=== PATIENT | female | born 1995 | race Caucasian/White ===

== ENCOUNTER 2020-11-11 05:41 | Emergency (ER) | payer OTHER ==
[~2020-11-11] VITALS: Ht 160 cm; Wt 60.0 kg
[2020-11-11 07:38] LABS: BASO # 0.1 10^3/uL (0.0-0.2); BASO % 0.7 % (0.0-1.0); EOS # 0.3 10^3/uL (0.0-0.5); EOS % 4.7 % (0.0-3.0); HEMATOCRIT 39.1 % (36.0-47.0); HEMOGLOBIN 12.8 g/dl (12.0-15.5); LYMPH # 2.7 10^3/uL (1.5-5.0); LYMPH % 39.1 % (24.0-44.0); MEAN CORPUSCULAR HEMOGLOBIN 31.2 pg (27.0-33.0); MEAN CORPUSCULAR HGB CONC 32.7 g/dl (32.0-36.5); MEAN CORPUSCULAR VOLUME 95.4 fl (80.0-96.0); MONO # 0.5 10^3/uL (0.0-0.8); MONO % 7.7 % (2.0-8.0); NEUTROPHILS # 3.2 10^3/uL (1.5-8.5); NEUTROPHILS % 47.7 % (36.0-66.0); PLATELET COUNT, AUTOMATED 260 10^3/uL (150-450); WHITE BLOOD COUNT 6.8 10^3/uL (4.0-10.0)
[2020-11-11 09:02] VITALS: BP 112/62
== END 2020-11-11 09:03 | disposition home or self-care (01) ==
LOC: M ED 05:41
DX: N92.6 Irregular menstruation, unspecified (principal); Z97.5 Presence of (intrauterine) contraceptive device

== ENCOUNTER → 2021-01-12 | Outpatient (REF) | LOC: M EMP 13:09 | PROVIDERS: ATTEND Family Medicine | DX: Z11.52 Encounter for screening for COVID-19 (principal) ==

== ENCOUNTER 2021-11-27 10:12 | Emergency (ER) | payer OTHER ==
[~2021-11-27] VITALS: Ht 160 cm; Wt 73.2 kg
[~2021-11-27 10:12] MED LIST: ALBUTEROL 90 MCG/ACT 8GM HFA INHALER INH PRN; ALBUTEROL SULFATE 2.5 MG/0.5 ML INH NEB SOLN INH PRN; EPINEPHrine INJ 1 MG/ML 1ML AMP IM PRN; diphenhydrAMINE 50MG/ML VIAL (J1200) IV PRN; methylPREDNISolone 125MG 2ML VIAL IV PRN
[2021-11-27] MEDS ORDERED: PRENMIS3 PO (10:24)
[2021-11-27 14:50] VITALS: O2SAT 97
[2021-11-27] MEDS ORDERED: BEBTELOVIMAB 175MG 2ML VIAL (EUA) IV ONE (17:00)
[2021-11-27] MEDS ORDERED: NS 1,000 ML IV SCH (17:00)
[2021-11-27 17:15] VITALS: BP 118/65
== END 2021-11-27 19:09 | disposition home or self-care (01) ==
LOC: M ED 10:12
DX: U07.1 COVID-19 (principal); Z3A.31 31 weeks gestation of pregnancy

== ENCOUNTER 2022-01-27 05:27 | Inpatient (IN) | payer OTHER ==
[2022-01-27] VITALS (9 sets, daily range): BP systolic 103–121; BP diastolic 56–77
[~2022-01-27] VITALS: Ht 160 cm; Wt 76.1 kg
[~2022-01-27 05:27] MED LIST changes: -ALBUTEROL 90 MCG/ACT 8GM HFA INHALER INH PRN; -ALBUTEROL SULFATE 2.5 MG/0.5 ML INH NEB SOLN INH PRN; -EPINEPHrine INJ 1 MG/ML 1ML AMP IM PRN; +PRENMIS3 PO; -diphenhydrAMINE 50MG/ML VIAL (J1200) IV PRN; -methylPREDNISolone 125MG 2ML VIAL IV PRN
[2022-01-27] MEDS ORDERED: LR 1,000 ML IV ONE (06:00)
[2022-01-27] MEDS ORDERED: BICITRA 30ML SOLN UDC PO ONE (06:15)
[2022-01-27] MEDS ORDERED: ceFAZolin SOD 2 GM in IV 1 EA IV ONE (06:15)
[2022-01-27 06:42] LABS: HEMATOCRIT 39.2 % (36.0-47.0); HEMOGLOBIN 12.9 g/dl (12.0-15.5); MEAN CORPUSCULAR HEMOGLOBIN 31.6 pg (27.0-33.0); MEAN CORPUSCULAR HGB CONC 32.9 g/dl (32.0-36.5); MEAN CORPUSCULAR VOLUME 96.1 fl (80.0-96.0); PLATELET COUNT, AUTOMATED 205 10^3/uL (150-450); RED BLOOD COUNT 4.08 10^6/uL (4.00-5.40); WHITE BLOOD COUNT 9.3 10^3/uL (4.0-10.0)
[2022-01-27] MEDS ORDERED: OXYTOCIN 30 UNITS IN 0.9% NaCl 500ML IV BAG (J2590) As Ordered ONE ×2 (07:20→09:08)
[2022-01-27] MEDS ORDERED: ePHEDrine SULFATE 25 MG/5 ML(5MG/ML) SYRINGE As Ordered ONE (07:20)
[2022-01-27] MEDS ORDERED: MORPHINE PRES-FREE INJ 10 MG/10 ML VIAL As Ordered ONE (07:21)
[2022-01-27] MEDS ORDERED: PHENYLephrine 500MCG 5ML (100MCG/ML) SYRINGE As Ordered ONE (07:21)
[2022-01-27] MEDS ORDERED: MOM 30ML SUSPENSION UDC PO PRN (07:50)
[2022-01-27] MEDS ORDERED: oxyCODONE 5MG TAB PO PRN ×3 (07:50→09:40)
[2022-01-27] MEDS ORDERED: SIMETHICONE 80MG CHEW TAB PO PRN (07:50)
[2022-01-27] MEDS ORDERED: ONDANSETRON 4MG 2ML VIAL IV PRN ×2 (07:50→09:40)
[2022-01-27] MEDS ORDERED: ACETAMINOPHEN 500 MG TAB PO PRN (07:50)
[2022-01-27] MEDS ORDERED: RHOGAM 300 MCG (1500 IU) INJ (J2790) IM SCH (07:50)
[2022-01-27] MEDS ORDERED: KETOROLAC 60MG 2ML VIAL As Ordered ONE (08:01)
[2022-01-27] MEDS ORDERED: ONDANSETRON 4MG 2ML VIAL As Ordered ONE (08:01)
[2022-01-27] MEDS: DOCUSATE SODIUM 100MG CAPSULE PO SCH ×2 (09:00→21:01)
[2022-01-27] MEDS: PRENATAL VITAMINS CHEWABLE TABLET PO SCH (09:00)
[2022-01-27] MEDS ORDERED: PRENATAL VITAMINS CHEWABLE TABLET PO SCH (09:00)
[2022-01-27] MEDS ORDERED: MEPERIDINE INJ 25 MG/ML VIAL (J2175) IV PRN (09:40)
[2022-01-27] MEDS: SLF 3 ML SYR IV SCH ×2 (09:40→17:40)
[2022-01-27] MEDS ORDERED: fentaNYL 100 MCG/2 ML INJECTION IV PRN (09:40)
[2022-01-27] MEDS ORDERED: METOCLOPRAMIDE INJ 10MG/2ML VIAL (J2765 PER 1) IV PRN (09:40)
[2022-01-27] MEDS ORDERED: HYDROMORPHONE HCL 0.5 MG/ 0.5 ML SYRINGE (J1170 PER 1) IV PRN (09:40)
[2022-01-27] MEDS ORDERED: NALOXONE INJ 0.4MG/1ML VIAL (J2310 PER 1MG) IV PRN ×2 (09:40)
[2022-01-27] MEDS ORDERED: **NOTE PATIENT COMMENT** MISC XX SCH (09:40)
[2022-01-27] MEDS: LR 1,000 ML IV SCH ×2 (09:52→14:47)
[2022-01-27] MEDS ORDERED: diphenhydrAMINE 50MG/ML VIAL (J1200) As Ordered ONE (10:25)
[2022-01-27] MEDS: diphenhydrAMINE 50MG/ML VIAL (J1200) IV PRN ×2 (10:28→14:47)
[2022-01-27] MEDS: KETOROLAC 30 MG/ML 1ML VIAL IV SCH ×2 (14:33→21:01)
[2022-01-28 02:00] VITALS: BP 125/70
[2022-01-28] MEDS: SLF 3 ML SYR IV SCH (03:36)
[2022-01-28] MEDS: KETOROLAC 30 MG/ML 1ML VIAL IV SCH (03:36)
[2022-01-28 05:36] VITALS: BP 117/70
[2022-01-28] MEDS ORDERED: IBUP80TA PO (07:11)
[2022-01-28] MEDS ORDERED: ACET-683 PO (07:11)
[2022-01-28] MEDS: DOCUSATE SODIUM 100MG CAPSULE PO SCH (08:09)
[2022-01-28] MEDS: PRENATAL VITAMINS CHEWABLE TABLET PO SCH (08:09)
[2022-01-28 08:11] LABS: HEMATOCRIT 36.2 % (36.0-47.0); HEMOGLOBIN 11.8 g/dl (12.0-15.5); MEAN CORPUSCULAR HEMOGLOBIN 32.2 pg (27.0-33.0); MEAN CORPUSCULAR HGB CONC 32.6 g/dl (32.0-36.5); MEAN CORPUSCULAR VOLUME 98.6 fl (80.0-96.0); PLATELET COUNT, AUTOMATED 160 10^3/uL (150-450); RED BLOOD COUNT 3.67 10^6/uL (4.00-5.40); WHITE BLOOD COUNT 10.2 10^3/uL (4.0-10.0)
[2022-01-28] MEDS ORDERED: IBUPROFEN 800 MG TAB PO SCH (10:00)
[2022-01-28 10:02] VITALS: BP 120/69
[2022-01-29] MEDS ORDERED: MEASLES,MUMPS,RUBELLA VACCINE INJ (MMR-II) (90707) SC.IMMUN ONE (09:00)
== END 2022-01-28 13:30 | disposition home or self-care (01) | DRG 773 ==
LOC: M LDI 05:27 → M OBS 10:47
PROVIDERS: ADMIT Obstetrics & Gynecology; ATTEND Obstetrics & Gynecology
PROC: 10D00Z1 Extraction of Products of Conception, Low, Open Approach (ICD-10-PCS; principal; 2022-01-27 07:30)
DX: O34.211 Maternal care for low transverse scar from previous cesarean delivery (principal); Z3A.39 39 weeks gestation of pregnancy; Z37.0 Single live birth